=== PATIENT | female | born 1960 | race Caucasian/White ===

== ENCOUNTER 2017-07-17 14:47 | Inpatient (IN) | payer MEDICAID ==
[~2017-07-17] VITALS: Ht 165.1 cm; Wt 44.9 kg
[2017-07-17 15:23] LABS: MEAN CORPUSCULAR HEMOGLOBIN 19.3 PG (27.0-31.0); MEAN CORPUSCULAR VOLUME 66.8 FL (78-98); MEAN PLATELET VOLUME 6.6 FL (7.4-10.4); RED BLOOD COUNT 2.34 X10'6 (4.20-5.60); RED CELL DISTRIBUTION WIDTH 22.7 % (11.5-14.5); WHITE BLOOD COUNT 23.4 X10'3 (4.5-11.0)
[2017-07-17 15:28] LABS: INR 1.6 INR; PROTHROMBIN TIME 16.3 SECONDS (9.0-12.0)
[2017-07-17 15:29] LABS: HEMOGLOBIN 4.5 g/dl (12.0-16.0)
[2017-07-17 15:31] LABS: HEMATOCRIT 15.6 % (35.0-45.0); PLATELET COUNT 1450 X10'3 (140-440)
[2017-07-17 15:34] LABS: ALANINE AMINOTRANSFERASE 23 U/L (12-78); ALBUMIN 1.5 G/DL (3.4-5.0); ALBUMIN/GLOBULIN RATIO 0.3 (1.1-1.5); ALKALINE PHOSPHATASE 255 IU/L (46-116); AMYLASE 25 U/L (25-115); ANION GAP 13 (8-16); ASPARTATE AMINO TRANSFERASE 66 U/L (10-37); BILIRUBIN,TOTAL 0.4 MG/DL (0.1-1.0); BLOOD UREA NITROGEN 25 MG/DL (7-18); BUN/CREATININE RATIO 45.5 (6.6-38.0); CALCIUM 9.4 MG/DL (8.5-10.1); CHLORIDE 101 MMOL/L (99-107); CREATININE 0.55 MG/DL (0.40-0.90); GLUCOSE 110 MG/DL (70-104); LIPASE 97 U/L (73-393); POTASSIUM 3.4 MMOL/L (3.5-5.1); SODIUM 136 MMOL/L (135-145); TOTAL CARBON DIOXIDE 21.6 MMOL/L (24-32); TOTAL PROTEIN 6.9 G/DL (6.4-8.2); eGFR > 90 ML/MIN
[2017-07-17 15:48] LABS: ANISOCYTOSIS 3+; MICROCYTOSIS 2+; NUCLEATED RED BLOOD CELLS 1 /100WBC (0-0); PLATELET ESTIMATE INCREASED; TOTAL CELLS COUNTED 100
[2017-07-17 15:49] LABS: HYPOCHROMASIA 2+
[2017-07-17 15:57] LABS: POLYCHROMASIA FEW
[2017-07-17 16:00] LABS: SCHISTOCYTES FEW
[2017-07-17] MEDS ORDERED: ESOMEPRAZOLE IV SCH (17:15)
[2017-07-17] MEDS ORDERED: magnesium hydroxide 30ml (MOM) UD suspension PO PRN (17:15)
[2017-07-17] MEDS: mag hydrox/Alum hydrox/simeth 30ml oral suspension PO PRN (17:32)
[2017-07-17] MEDS: pantoprazole 40MG/NS 100ML BAG 100 ML IV SCH ×2 (17:32→20:50)
[2017-07-17] MEDS: ondansetron/PF 4mg/2ml inj IV PRN (17:33)
[2017-07-17 17:56] LABS: CLARITY,URINE CLEAR (Clear); COLOR,URINE YELLOW (Yellow); GLUCOSE, URINE NEGATIVE (Neg); KETONES,URINE NEGATIVE (Neg); LEUKOCYTE ESTERASE ,URINE SMALL (Neg); NITRITES, URINE NEGATIVE (Neg); OCCULT BLOOD,URINE TRACE-INTACT (Neg); PROTEIN,URINE NEGATIVE (Neg); UA COLLECTION TYPE CLN CATCH MIDSTREAM; UROBILINOGEN,URINE 0.2 E.U/dL (0.2-1.0)
[2017-07-17 18:10] LABS: BACTERIA,URINE FEW /HPF (Neg); HYALINE CASTS 0-3 /LPF (NEGATIVE); RBC,URINE 0-2 /HPF (0-2); SQUAMOUS EPITHELIAL CELL,UR FEW /LPF (FEW); WBC,URINE 0-4 /HPF (0-4)
[2017-07-17 19:11] LABS: ABG HCO3 23.2 mmol/L (22.0-26.0); ABG PCO2 (T) 26.5 mmHg (32.0-45.0); ABG PO2 (T) 88.7 mmHg (83-108); ALLEN'S TEST Positive; PATIENT TEMPERATURE 36.7; RESPIRATORY RATE (OBSERVED) 16 b/min; TOTAL HEMOGLOBIN < 4.7 G/dl (12.0-16.0)
[2017-07-17 20:58] VITALS: BP 102/54
[2017-07-17 21:08] VITALS: BP 94/45
[2017-07-17 21:54] VITALS: BP 100/50
[2017-07-17 22:54] VITALS: BP 94/53
[2017-07-17] MEDS: barium sulfate 450ml oral suspension PO SCH (22:54)
[2017-07-17 23:12] VITALS: BP 99/50
[2017-07-17] MEDS ORDERED: Melatonin 3mg tablet PO PRN (23:35)
[2017-07-17] MEDS: morphine 4 MG/ML inj SYRINge IV PRN (23:51)
[2017-07-18] VITALS (15 sets, daily range): BP systolic 91–120; BP diastolic 44–69
[2017-07-18] MEDS: pantoprazole 40MG/NS 100ML BAG 100 ML IV SCH ×4 (01:54→20:03)
[2017-07-18] MEDS: morphine 4 MG/ML inj SYRINge IV PRN ×3 (03:22→21:09)
[2017-07-18 05:28] LABS: MEAN CORPUSCULAR HEMOGLOBIN 23.8 PG (27.0-31.0); MEAN CORPUSCULAR HGB CONC 30.8 % (33.0-36.5); MEAN CORPUSCULAR VOLUME 77.2 FL (78-98); MEAN PLATELET VOLUME 6.9 FL (7.4-10.4); RED CELL DISTRIBUTION WIDTH 27.3 % (11.5-14.5); WHITE BLOOD COUNT 19.7 X10'3 (4.5-11.0)
[2017-07-18 05:38] LABS: RED BLOOD COUNT 2.46 X10'6 (4.20-5.60)
[2017-07-18 05:41] LABS: HEMOGLOBIN 5.9 g/dl (12.0-16.0); PLATELET COUNT 1076 X10'3 (140-440)
[2017-07-18 06:01] LABS: ALANINE AMINOTRANSFERASE 21 U/L (12-78); ALBUMIN 1.2 G/DL (3.4-5.0); ALBUMIN/GLOBULIN RATIO 0.3 (1.1-1.5); ALKALINE PHOSPHATASE 222 IU/L (46-116); ANION GAP 10 (8-16); ASPARTATE AMINO TRANSFERASE 43 U/L (10-37); BILIRUBIN,TOTAL 0.5 MG/DL (0.1-1.0); BLOOD UREA NITROGEN 18 MG/DL (7-18); CALCIUM 8.5 MG/DL (8.5-10.1); CHLORIDE 104 MMOL/L (99-107); CREATININE 0.53 MG/DL (0.40-0.90); GLUCOSE 113 MG/DL (70-104); POTASSIUM 3.1 MMOL/L (3.5-5.1); SODIUM 138 MMOL/L (135-145); TOTAL CARBON DIOXIDE 23.9 MMOL/L (24-32); TOTAL PROTEIN 5.6 G/DL (6.4-8.2); eGFR > 90 ML/MIN
[2017-07-18 06:05] LABS: ANISOCYTOSIS 3+; HYPOCHROMASIA 1+; LYMPHOCYTES % (MANUAL) 5 % (21-51); MONOCYTES % (MANUAL) 5 % (2-12); NEUTROPHILS % (MANUAL) 90 % (42-75); PLATELET ESTIMATE INCREASED; TOTAL CELLS COUNTED 100
[2017-07-18] MEDS ORDERED: acetaminophen 325mg tablet PO ONE (06:05)
[2017-07-18] MEDS ORDERED: diphenhydrAMINE 50 mg/ml inj IV ONE (06:05)
[2017-07-18] MEDS: barium sulfate 450ml oral suspension PO SCH ×2 (07:20→08:24)
[2017-07-18] MEDS ORDERED: iohexol 300mg/ml 100ml inj. ONE (08:34)
[2017-07-18] MEDS: ketorolac tromethamine 15mg/ml inj. IV PRN (11:12)
[2017-07-18] MEDS ORDERED: furosemide 20 MG/2 ML vial IV ONE (13:30)
[2017-07-18] MEDS ORDERED: NO HOME MEDS (17:46)
[2017-07-19] VITALS: BP 128/69
[2017-07-19] MEDS: morphine 4 MG/ML inj SYRINge IV PRN ×3 (00:29→16:18)
[2017-07-19] MEDS: pantoprazole 40MG/NS 100ML BAG 100 ML IV SCH ×5 (02:05→21:09)
[2017-07-19 04:55] LABS: HEMATOCRIT 25.3 % (35.0-45.0); MEAN CORPUSCULAR HEMOGLOBIN 25.5 PG (27.0-31.0); MEAN CORPUSCULAR HGB CONC 31.7 % (33.0-36.5); MEAN CORPUSCULAR VOLUME 80.5 FL (78-98); MEAN PLATELET VOLUME 6.6 FL (7.4-10.4); PLATELET COUNT 925 X10'3 (140-440); RED BLOOD COUNT 3.14 X10'6 (4.20-5.60); RED CELL DISTRIBUTION WIDTH 25.5 % (11.5-14.5); WHITE BLOOD COUNT 20.4 X10'3 (4.5-11.0)
[2017-07-19 05:13] LABS: ALANINE AMINOTRANSFERASE 20 U/L (12-78); ALBUMIN 1.2 G/DL (3.4-5.0); ALBUMIN/GLOBULIN RATIO 0.3 (1.1-1.5); ALKALINE PHOSPHATASE 249 IU/L (46-116); ANION GAP 8 (8-16); ASPARTATE AMINO TRANSFERASE 29 U/L (10-37); BILIRUBIN,TOTAL 1.1 MG/DL (0.1-1.0); BLOOD UREA NITROGEN 11 MG/DL (7-18); BUN/CREATININE RATIO 25.6 (6.6-38.0); CALCIUM 8.2 MG/DL (8.5-10.1); CHLORIDE 104 MMOL/L (99-107); CREATININE 0.43 MG/DL (0.40-0.90); GLUCOSE 102 MG/DL (70-104); POTASSIUM 3.1 MMOL/L (3.5-5.1); SODIUM 138 MMOL/L (135-145); TOTAL PROTEIN 5.9 G/DL (6.4-8.2); eGFR > 90 ML/MIN
[2017-07-19 05:20] LABS: NEUTROPHILS % (MANUAL) 96 % (42-75); TOTAL CELLS COUNTED 100
[2017-07-19 05:21] LABS: ANISOCYTOSIS 3+; HYPOCHROMASIA 1+; LYMPHOCYTES % (MANUAL) 3 % (21-51); MONOCYTES % (MANUAL) 1 % (2-12); PLATELET ESTIMATE INCREASED; POLYCHROMASIA 1+; TARGET CELLS FEW
[2017-07-19] MEDS: ketorolac tromethamine 15mg/ml inj. IV PRN (07:34)
[2017-07-19 08:33] VITALS: BP 140/75
[2017-07-19] MEDS ORDERED: magnesium 4gm in 100ml NS 100 ML IV PRN (09:05)
[2017-07-19] MEDS ORDERED: potassium Cl 20 mEq SR tablet PO PRN (09:05)
[2017-07-19] MEDS ORDERED: potassium Cl 40MEQ/NS 500ml 500 ML IV PRN ×2 (09:05)
[2017-07-19] MEDS ORDERED: magnesium 2GM in 50ml NS 50 ML IV PRN (09:05)
[2017-07-19] MEDS ORDERED: magnesium Cl slow-release 64mg tablet PO PRN (09:05)
[2017-07-19] MEDS: potassium Cl 20 mEq SR tablet PO PRN ×2 (10:38→14:53)
[2017-07-19 11:00] VITALS: BP 118/61
[2017-07-19] MEDS ORDERED: MAG30ORA PO (15:12)
[2017-07-19] MEDS ORDERED: PANT-47 PO (15:12)
[2017-07-19 18:00] VITALS: BP 105/52
[2017-07-19] MEDS: MORPHINE 2MG in 2ml NS syringe IV PRN ×2 (19:27→23:32)
[2017-07-20] VITALS: BP 111/56
[2017-07-20] MEDS: ketorolac tromethamine 15mg/ml inj. IV PRN ×4 (01:45→22:59)
[2017-07-20] MEDS: pantoprazole 40MG/NS 100ML BAG 100 ML IV SCH ×5 (02:32→20:45)
[2017-07-20 05:20] LABS: HEMATOCRIT 25.1 % (35.0-45.0); HEMOGLOBIN 7.9 g/dl (12.0-16.0); MEAN CORPUSCULAR HEMOGLOBIN 25.5 PG (27.0-31.0); MEAN CORPUSCULAR HGB CONC 31.5 % (33.0-36.5); MEAN PLATELET VOLUME 7.2 FL (7.4-10.4); PLATELET COUNT 733 X10'3 (140-440); RED CELL DISTRIBUTION WIDTH 27.3 % (11.5-14.5); WHITE BLOOD COUNT 20.8 X10'3 (4.5-11.0)
[2017-07-20 05:49] LABS: ALANINE AMINOTRANSFERASE 14 U/L (12-78); ALBUMIN 1.1 G/DL (3.4-5.0); ALBUMIN/GLOBULIN RATIO 0.2 (1.1-1.5); ALKALINE PHOSPHATASE 292 IU/L (46-116); ANION GAP 10 (8-16); ASPARTATE AMINO TRANSFERASE 26 U/L (10-37); BILIRUBIN,TOTAL 1.2 MG/DL (0.1-1.0); BLOOD UREA NITROGEN 11 MG/DL (7-18); BUN/CREATININE RATIO 28.2 (6.6-38.0); CALCIUM 8.2 MG/DL (8.5-10.1); CHLORIDE 101 MMOL/L (99-107); CREATININE 0.39 MG/DL (0.40-0.90); GLUCOSE 96 MG/DL (70-104); POTASSIUM 3.4 MMOL/L (3.5-5.1); SODIUM 135 MMOL/L (135-145); TOTAL CARBON DIOXIDE 24.5 MMOL/L (24-32); TOTAL PROTEIN 5.7 G/DL (6.4-8.2); eGFR > 90 ML/MIN
[2017-07-20 07:00] VITALS: BP 95/53
[2017-07-20 07:30] LABS: ANISOCYTOSIS 3+; HYPOCHROMASIA 1+; PLATELET ESTIMATE INCREASED; POLYCHROMASIA 2+; TARGET CELLS FEW; TOTAL CELLS COUNTED 100
[2017-07-20] MEDS: potassium Cl 20 mEq SR tablet PO PRN ×2 (07:54→19:55)
[2017-07-20 11:00] VITALS: BP 94/44
[2017-07-20 19:30] VITALS: BP_SYST 111; BP_SYST 149; BP_DIAS 65; BP_DIAS 68
[2017-07-20] MEDS: MORPHINE 2MG in 2ml NS syringe IV PRN (19:56)
[2017-07-21] VITALS: BP_SYST 103; BP_SYST 139; BP_DIAS 59
[2017-07-21] MEDS: MORPHINE 2MG in 2ml NS syringe IV PRN ×5 (00:16→22:26)
[2017-07-21] MEDS: potassium Cl 20 mEq SR tablet PO PRN (01:48)
[2017-07-21] MEDS: pantoprazole 40MG/NS 100ML BAG 100 ML IV SCH ×5 (01:51→22:21)
[2017-07-21 05:25] LABS: HEMATOCRIT 24.4 % (35.0-45.0); HEMOGLOBIN 7.8 g/dl (12.0-16.0); MEAN CORPUSCULAR HEMOGLOBIN 25.6 PG (27.0-31.0); MEAN CORPUSCULAR HGB CONC 31.8 % (33.0-36.5); MEAN CORPUSCULAR VOLUME 80.4 FL (78-98); MEAN PLATELET VOLUME 7.7 FL (7.4-10.4); PLATELET COUNT 636 X10'3 (140-440); RED BLOOD COUNT 3.03 X10'6 (4.20-5.60); RED CELL DISTRIBUTION WIDTH 27.3 % (11.5-14.5); WHITE BLOOD COUNT 18.6 X10'3 (4.5-11.0)
[2017-07-21 05:48] LABS: ALANINE AMINOTRANSFERASE 19 U/L (12-78); ALBUMIN 1.1 G/DL (3.4-5.0); ALBUMIN/GLOBULIN RATIO 0.3 (1.1-1.5); ALKALINE PHOSPHATASE 364 IU/L (46-116); ANION GAP 7 (8-16); ASPARTATE AMINO TRANSFERASE 38 U/L (10-37); BLOOD UREA NITROGEN 12 MG/DL (7-18); BUN/CREATININE RATIO 26.7 (6.6-38.0); CALCIUM 7.9 MG/DL (8.5-10.1); CHLORIDE 102 MMOL/L (99-107); CREATININE 0.45 MG/DL (0.40-0.90); GLUCOSE 100 MG/DL (70-104); POTASSIUM 4.3 MMOL/L (3.5-5.1); SODIUM 134 MMOL/L (135-145); TOTAL CARBON DIOXIDE 24.8 MMOL/L (24-32); TOTAL PROTEIN 5.5 G/DL (6.4-8.2); eGFR > 90 ML/MIN
[2017-07-21 06:16] LABS: ANISOCYTOSIS 3+; HYPOCHROMASIA 1+; PLATELET ESTIMATE INCREASED; POLYCHROMASIA 1+; TOTAL CELLS COUNTED 100
[2017-07-21 06:17] LABS: LARGE PLATELETS FEW; TARGET CELLS FEW
[2017-07-21 07:00] VITALS: BP 102/68
[2017-07-21 11:00] VITALS: BP 104/66
[2017-07-21] MEDS: CefTRIAXone/D5W-Rocephin 1gm 50 ML IV SCH (17:25)
[2017-07-21 19:30] VITALS: BP 111/52
[2017-07-21] MEDS: ketorolac tromethamine 15mg/ml inj. IV PRN (20:50)
[2017-07-22] VITALS: BP 96/55
[2017-07-22] MEDS: pantoprazole 40MG/NS 100ML BAG 100 ML IV SCH ×3 (03:34→14:02)
[2017-07-22 05:07] LABS: HEMOGLOBIN 7.6 g/dl (12.0-16.0); MEAN CORPUSCULAR HEMOGLOBIN 25.3 PG (27.0-31.0); MEAN CORPUSCULAR HGB CONC 31.5 % (33.0-36.5); MEAN CORPUSCULAR VOLUME 80.4 FL (78-98); MEAN PLATELET VOLUME 7.6 FL (7.4-10.4); PLATELET COUNT 641 X10'3 (140-440); RED BLOOD COUNT 2.99 X10'6 (4.20-5.60); RED CELL DISTRIBUTION WIDTH 27.6 % (11.5-14.5); WHITE BLOOD COUNT 18.4 X10'3 (4.5-11.0)
[2017-07-22] MEDS: MORPHINE 2MG in 2ml NS syringe IV PRN ×5 (05:09→23:11)
[2017-07-22 05:27] LABS: CLARITY,URINE SLIGHTLY CLOUDY (Clear); COLOR,URINE YELLOW (Yellow); GLUCOSE, URINE NEGATIVE (Neg); KETONES,URINE NEGATIVE (Neg); LEUKOCYTE ESTERASE ,URINE MODERATE (Neg); NITRITES, URINE NEGATIVE (Neg); OCCULT BLOOD,URINE TRACE-INTACT (Neg); PROTEIN,URINE 30 mg/dl (Neg)
[2017-07-22 05:34] LABS: UA COLLECTION TYPE CLN CATCH MIDSTREAM
[2017-07-22 05:36] LABS: BACTERIA,URINE FEW /HPF (Neg); RBC,URINE 0-2 /HPF (0-2); SQUAMOUS EPITHELIAL CELL,UR FEW /LPF (FEW)
[2017-07-22 05:37] LABS: WBC CLUMPS,URINE FEW /HPF (NEGATIVE)
[2017-07-22 05:47] LABS: PLATELET ESTIMATE INCREASED; TOTAL CELLS COUNTED 100
[2017-07-22 05:48] LABS: ALANINE AMINOTRANSFERASE 23 U/L (12-78); ALBUMIN/GLOBULIN RATIO 0.2 (1.1-1.5); ALKALINE PHOSPHATASE 400 IU/L (46-116); ANION GAP 10 (8-16); ANISOCYTOSIS 3+; ASPARTATE AMINO TRANSFERASE 50 U/L (10-37); BILIRUBIN,TOTAL 1.1 MG/DL (0.1-1.0); BLOOD UREA NITROGEN 10 MG/DL (7-18); CALCIUM 8.2 MG/DL (8.5-10.1); CHLORIDE 102 MMOL/L (99-107); GLUCOSE 86 MG/DL (70-104); HYPOCHROMASIA 1+; LARGE PLATELETS FEW; POLYCHROMASIA FEW; POTASSIUM 3.8 MMOL/L (3.5-5.1); SODIUM 135 MMOL/L (135-145); TARGET CELLS FEW; TOTAL CARBON DIOXIDE 22.7 MMOL/L (24-32); TOTAL PROTEIN 5.5 G/DL (6.4-8.2); eGFR > 90 ML/MIN
[2017-07-22 07:48] VITALS: BP 100/42
[2017-07-22] MEDS: CefTRIAXone/D5W-Rocephin 1gm 50 ML IV SCH (08:08)
[2017-07-22 12:00] VITALS: BP 114/61
[2017-07-22] MEDS: ketorolac tromethamine 15mg/ml inj. IV PRN (15:45)
[2017-07-22 19:30] VITALS: BP 109/60
[2017-07-22] MEDS: pantoprazole 40 MG vial IV SCH (20:05)
[2017-07-22] MEDS: lactobacillus rhamnosus 10,000 MMU CELLS/CAPSULE PO SCH (20:05)
[2017-07-22] MEDS: mag hydrox/Alum hydrox/simeth 30ml oral suspension PO PRN (22:27)
[2017-07-23] VITALS: BP 115/52
[2017-07-23] MEDS: MORPHINE 2MG in 2ml NS syringe IV PRN ×5 (02:28→19:49)
[2017-07-23 07:00] VITALS: BP 99/55
[2017-07-23] MEDS: lactobacillus rhamnosus 10,000 MMU CELLS/CAPSULE PO SCH ×2 (08:27→19:50)
[2017-07-23] MEDS: pantoprazole 40 MG vial IV SCH ×2 (08:27→19:50)
[2017-07-23] MEDS: CefTRIAXone/D5W-Rocephin 1gm 50 ML IV SCH (08:27)
[2017-07-23 10:59] LABS: HEMATOCRIT 25.7 % (35.0-45.0); MEAN CORPUSCULAR HEMOGLOBIN 25.2 PG (27.0-31.0); MEAN CORPUSCULAR HGB CONC 31.3 % (33.0-36.5); MEAN CORPUSCULAR VOLUME 80.5 FL (78-98); MEAN PLATELET VOLUME 7.1 FL (7.4-10.4); PLATELET COUNT 765 X10'3 (140-440); RED BLOOD COUNT 3.19 X10'6 (4.20-5.60); RED CELL DISTRIBUTION WIDTH 27.9 % (11.5-14.5); WHITE BLOOD COUNT 23.3 X10'3 (4.5-11.0)
[2017-07-23 11:07] LABS: ANISOCYTOSIS 3+; PLATELET ESTIMATE INCREASED; TOTAL CELLS COUNTED 100
[2017-07-23 11:08] LABS: HYPOCHROMASIA 1+; LARGE PLATELETS FEW
[2017-07-23 11:14] LABS: ALANINE AMINOTRANSFERASE 25 U/L (12-78); ALBUMIN 1.1 G/DL (3.4-5.0); ALBUMIN/GLOBULIN RATIO 0.2 (1.1-1.5); ALKALINE PHOSPHATASE 352 IU/L (46-116); ANION GAP 11 (8-16); ASPARTATE AMINO TRANSFERASE 36 U/L (10-37); BILIRUBIN,TOTAL 1.1 MG/DL (0.1-1.0); BLOOD UREA NITROGEN 10 MG/DL (7-18); BUN/CREATININE RATIO 25.6 (6.6-38.0); CHLORIDE 101 MMOL/L (99-107); CREATININE 0.39 MG/DL (0.40-0.90); GLUCOSE 99 MG/DL (70-104); POTASSIUM 3.6 MMOL/L (3.5-5.1); SODIUM 134 MMOL/L (135-145); TOTAL CARBON DIOXIDE 22.1 MMOL/L (24-32); TOTAL PROTEIN 5.8 G/DL (6.4-8.2); eGFR > 90 ML/MIN
[2017-07-23 12:00] VITALS: BP 102/48
[2017-07-23 18:59] LABS: CLARITY,URINE CLEAR (Clear); COLOR,URINE ORANGE (Yellow); GLUCOSE, URINE NEGATIVE (Neg); KETONES,URINE NEGATIVE (Neg); LEUKOCYTE ESTERASE ,URINE TRACE (Neg); NITRITES, URINE NEGATIVE (Neg); OCCULT BLOOD,URINE TRACE-LYSED (Neg); PROTEIN,URINE 30 mg/dl (Neg)
[2017-07-23 19:06] LABS: UA COLLECTION TYPE CLN CATCH MIDSTREAM
[2017-07-23 19:09] LABS: BACTERIA,URINE FEW /HPF (Neg); RBC,URINE 0-2 /HPF (0-2); SQUAMOUS EPITHELIAL CELL,UR NONE SEEN /LPF (FEW); WBC,URINE 0-4 /HPF (0-4)
[2017-07-23 19:30] VITALS: BP 107/52
[2017-07-24] VITALS: BP 118/50
[2017-07-24] MEDS: MORPHINE 2MG in 2ml NS syringe IV PRN ×3 (02:40→05:47)
[2017-07-24 03:00] VITALS: BP 111/67
[2017-07-24] MEDS ORDERED: amiodarone 200mg tablet PO ONE (03:45)
[2017-07-24 05:45] LABS: HEMOGLOBIN 8.7 g/dl (12.0-16.0); MEAN CORPUSCULAR HEMOGLOBIN 25.8 PG (27.0-31.0); MEAN CORPUSCULAR HGB CONC 32.2 % (33.0-36.5); MEAN CORPUSCULAR VOLUME 79.9 FL (78-98); MEAN PLATELET VOLUME 7.5 FL (7.4-10.4); PLATELET COUNT 789 X10'3 (140-440); RED BLOOD COUNT 3.38 X10'6 (4.20-5.60); RED CELL DISTRIBUTION WIDTH 28.1 % (11.5-14.5); WHITE BLOOD COUNT 20.4 X10'3 (4.5-11.0)
[2017-07-24 06:00] LABS: ALANINE AMINOTRANSFERASE 21 U/L (12-78); ALBUMIN/GLOBULIN RATIO 0.2 (1.1-1.5); ALKALINE PHOSPHATASE 377 IU/L (46-116); ANION GAP 10 (8-16); ASPARTATE AMINO TRANSFERASE 40 U/L (10-37); BILIRUBIN,DIRECT 0.7 MG/DL (0-0.3); BILIRUBIN,TOTAL 1.2 MG/DL (0.1-1.0); BLOOD UREA NITROGEN 9 MG/DL (7-18); BUN/CREATININE RATIO 28.1 (6.6-38.0); CHLORIDE 100 MMOL/L (99-107); CREATININE 0.32 MG/DL (0.40-0.90); GLUCOSE 93 MG/DL (70-104); POTASSIUM 3.2 MMOL/L (3.5-5.1); SODIUM 133 MMOL/L (135-145); TOTAL CARBON DIOXIDE 23.5 MMOL/L (24-32); TOTAL PROTEIN 5.5 G/DL (6.4-8.2); eGFR > 90 ML/MIN
[2017-07-24 06:33] LABS: ANISOCYTOSIS 3+; GIANT PLATELET FEW; PLATELET ESTIMATE INCREASED; TOTAL CELLS COUNTED 100
[2017-07-24 06:34] LABS: HYPOCHROMASIA 1+
[2017-07-24 07:29] VITALS: BP 105/56
[2017-07-24] MEDS ORDERED: amiodarone 200mg tablet PO SCH (08:00)
[2017-07-24] MEDS: amiodarone 200mg tablet PO SCH (09:20)
[2017-07-24] MEDS: pantoprazole 40 MG vial IV SCH (09:20)
[2017-07-24] MEDS: lactobacillus rhamnosus 10,000 MMU CELLS/CAPSULE PO SCH ×2 (09:20→19:31)
[2017-07-24] MEDS: CefTRIAXone/D5W-Rocephin 1gm 50 ML IV SCH (09:21)
[2017-07-24] MEDS ORDERED: potassium Cl 20 mEq SR tablet PO PRN (10:20)
[2017-07-24] MEDS ORDERED: potassium Cl 40MEQ/NS 500ml 500 ML IV PRN ×2 (10:20)
[2017-07-24] MEDS: potassium Cl 20 mEq SR tablet PO PRN ×3 (10:31→19:32)
[2017-07-24 11:44] VITALS: BP 116/67
[2017-07-24 12:10] LABS: OCCULT BLOOD STOOL NEGATIVE (Neg)
[2017-07-24] MEDS ORDERED: morphine 2 MG/ML inj. syringe IV PRN ×2 (12:10→19:20)
[2017-07-24] MEDS: pantoprazole 40mg Tablet.DR PO SCH (12:18)
[2017-07-24] MEDS: morphine 2 MG/ML inj. syringe IV PRN ×2 (19:31→22:28)
[2017-07-24 20:00] VITALS: BP 135/60
[2017-07-24] MEDS: ondansetron/PF 4mg/2ml inj IV PRN (22:17)
[2017-07-25] VITALS: BP 101/53
[2017-07-25] MEDS: morphine 2 MG/ML inj. syringe IV PRN ×5 (01:34→16:57)
[2017-07-25 05:26] LABS: HEMATOCRIT 28.9 % (35.0-45.0); HEMOGLOBIN 9.1 g/dl (12.0-16.0); MEAN CORPUSCULAR HEMOGLOBIN 25.2 PG (27.0-31.0); MEAN CORPUSCULAR HGB CONC 31.5 % (33.0-36.5); MEAN CORPUSCULAR VOLUME 80.2 FL (78-98); MEAN PLATELET VOLUME 7.5 FL (7.4-10.4); PLATELET COUNT 743 X10'3 (140-440); RED CELL DISTRIBUTION WIDTH 28.2 % (11.5-14.5); WHITE BLOOD COUNT 19.8 X10'3 (4.5-11.0)
[2017-07-25 05:44] LABS: ALANINE AMINOTRANSFERASE 29 U/L (12-78); ALBUMIN 1.2 G/DL (3.4-5.0); ALBUMIN/GLOBULIN RATIO 0.3 (1.1-1.5); ALKALINE PHOSPHATASE 392 IU/L (46-116); ANION GAP 8 (8-16); ASPARTATE AMINO TRANSFERASE 52 U/L (10-37); BILIRUBIN,TOTAL 1.2 MG/DL (0.1-1.0); BLOOD UREA NITROGEN 8 MG/DL (7-18); BUN/CREATININE RATIO 21.1 (6.6-38.0); CALCIUM 8.4 MG/DL (8.5-10.1); CHLORIDE 101 MMOL/L (99-107); CREATININE 0.38 MG/DL (0.40-0.90); GLUCOSE 96 MG/DL (70-104); POTASSIUM 3.9 MMOL/L (3.5-5.1); SODIUM 134 MMOL/L (135-145); TOTAL CARBON DIOXIDE 25.1 MMOL/L (24-32); TOTAL PROTEIN 5.9 G/DL (6.4-8.2); eGFR > 90 ML/MIN
[2017-07-25 06:23] LABS: ANISOCYTOSIS 3+; PLATELET ESTIMATE INCREASED; TOTAL CELLS COUNTED 100
[2017-07-25 06:24] LABS: HYPOCHROMASIA 1+
[2017-07-25] MEDS: pantoprazole 40mg Tablet.DR PO SCH (07:26)
[2017-07-25] MEDS: lactobacillus rhamnosus 10,000 MMU CELLS/CAPSULE PO SCH (07:26)
[2017-07-25] MEDS: amiodarone 200mg tablet PO SCH (07:27)
[2017-07-25] MEDS: CefTRIAXone/D5W-Rocephin 1gm 50 ML IV SCH (07:27)
[2017-07-25 07:36] VITALS: BP 114/56
[2017-07-25] MEDS ORDERED: amiodarone 200mg tablet PO SCH (08:00)
[2017-07-25] MEDS ORDERED: K and/or MAG REPLACEMENT MC SCH (08:00)
[2017-07-25 11:23] VITALS: BP 106/50
== END 2017-07-25 19:32 | DRG 197 ==
LOC: ER 14:48 → ED HOLD 17:15 → SUR 3N 22:15
PROVIDERS: ADMIT Internal Medicine; ATTEND Internal Medicine
PROC: 30233N1 Transfusion of Nonautologous Red Blood Cells into Peripheral Vein, Percutaneous Approach (ICD-10-PCS; principal; 2017-07-18)
PROC: BW251ZZ Computerized Tomography (CT Scan) of Chest, Abdomen and Pelvis using Low Osmolar Contrast (ICD-10-PCS; 2017-07-18)
DX: I82.412 Acute embolism and thrombosis of left femoral vein (principal); E43 Unspecified severe protein-calorie malnutrition; D69.6 Thrombocytopenia, unspecified; D63.0 Anemia in neoplastic disease; C55 Malignant neoplasm of uterus, part unspecified; Z68.1 Body mass index [BMI] 19.9 or less, adult; D63.8 Anemia in other chronic diseases classified elsewhere; N93.9 Abnormal uterine and vaginal bleeding, unspecified; D72.829 Elevated white blood cell count, unspecified
CPT/HCPCS: 36415; 36600; 71045; 74176; 80053; 81001; 82150; 82248; 82272; 82803; 83605; 83690; 83735; 84484; 85018; 85025; 85610; 86885; 86900; 86901; 86920; 87040; 87070; 87088; 93005; 93306; 93970; 97110; 97116; 97161; 97530; 99285; C9113; J0696; J1200; J1885; J1940; J2270; J2274; J2405; J7030; P9016; Q9967